=== PATIENT | female | born 1960 | race Caucasian/White ===

== ENCOUNTER → 2017-05-22 | Outpatient (CLI) | payer OTHER ==
--- NOTE | 2017-05-22 17:08 | PCVCIMAG ---
APPROVED REPORT Exam: Stress Echocardiogram Indication: Elevated CA Score, DM, HPL, Dyspnea on Exertion Patient Location: Echo lab Stress Nurse: Sandra Villanueva RN Status: routine Ht: 5 ft 4 in HR: 90 bpm BP: 124/80 mmHg Rhythm: NSR Procedure The patient underwent an Exercise Stress Test using the Mois[employer] Protocol. Blood pressure, heart rate, and EKG were monitored. An Echocardiogram was performed by quality assurance technician in four stages in quad fashion. At peak stress, four selected images were obtained and placed side by side with resting images for comparison. Stress Test Details Stress Test: Exercise stress testing was performed using a Moisés protocol. HR Resting HR: 90 bpmMax Heart Rate (APMHR): 161 bpm Max HR Achieved: 137 bpmTarget HR (85% APMHR): 136 bpm % of APMHR: 85 Recovery HR: 100 bpm HR response to stress: Normal HR response to stress BP Resting BP: 124/74 mmHg Max BP: 156/74 mmHg Recovery BP: 104/68 mmHg ECG Resting ECG: Sinus Rhythm Stress ECG: Sinus Rhythm Arrhythmia: None Recovery ECG: Sinus Rhythm Recovery Arrhythmia: None Clinical Reason for Termination: Maximal effort Exercise duration: 6 min 11 sec Highest Stage Achieved: Stage 3: 3.4 mph at 14% grade. Exercise capacity: 7.50 METs Overall Exercise Capacity for Age: Average Pre-Stress Echo The resting Echocardiogram showed normal left ventricular contractility with an estimated Ejection Fraction of about >55%. Normal wall motion in all segments on baseline images. Post-Stress Echo The stress Echocardiogram showed normal left ventricular contractility with an estimated Ejection Fraction of about 60-65%. Normal augmentation of wall motion in all segments on post stress images. Clinical No clinical or ECG evidence for ischemia. Conclusion Clinical Response: Non-ischemic Exercise Capacity: Average Stress ECG Response: Non-ischemic Stress Echo Images: Non-ischemic The left ventricle is normal in size and wall thickness in both the rest and stress images. Other Information Study Quality: Adequate <Conclusion> The left ventricle is normal in size and wall thickness in both the rest and stress images.
== END | disposition home or self-care (01) ==
LOC: PCVCIMAG 14:07
PROVIDERS: ATTEND Internal Medicine Cardiovascular Disease
DX: E11.9 Type 2 diabetes mellitus without complications (principal); R06.09 Other forms of dyspnea; E83.59 Other disorders of calcium metabolism; E78.5 Hyperlipidemia, unspecified
CPT/HCPCS: 93325; 93351